=== PATIENT | male | born 1980 | race Caucasian/White ===

== ENCOUNTER 2017-07-24 05:11 | Emergency (ER) | payer SELFPAY ==
[~2017-07-24] VITALS: Ht 185.4 cm; Wt 95.0 kg
[2017-07-24] MEDS ORDERED: LIDOCAINE HCL 1% 10 ML VIAL INJ ONE (07:30)
[2017-07-24] MEDS ORDERED: HYDROCODONE/ACETAMINOPHEN 5-325 MG TABLET PO ONE (07:45)
[2017-07-24] MEDS ORDERED: CLINDAMYCIN HCL 150 MG CAPSULE PO ONE (08:15)
[2017-07-24 08:20] VITALS: BP 150/94
== END 2017-07-24 08:20 | disposition home or self-care (01) ==
LOC: EMS 05:13
DX: L03.114 Cellulitis of left upper limb (principal)
CPT/HCPCS: 26010; 73130; 99284; J3490

== ENCOUNTER 2017-08-02 07:25 | Emergency (ER) | payer SELFPAY | END 2017-08-02 08:16 | disposition left against medical advice (07) | LOC: EMS 07:26 | DX: Z02.9 Encounter for administrative examinations, unspecified (principal); Z53.21 Procedure and treatment not carried out due to patient leaving prior to being seen by health care provider ==

== ENCOUNTER 2021-08-28 16:50 | Emergency (ER) | payer MEDICAID ==
[~2021-08-28] VITALS: Ht 185.4 cm; Wt 100.0 kg
[2021-08-28 16:58] VITALS: BP 143/92
== END 2021-08-28 20:01 | disposition left against medical advice (07) ==
LOC: EMS 16:53
DX: R51.9 Headache, unspecified (principal); Z53.21 Procedure and treatment not carried out due to patient leaving prior to being seen by health care provider